=== PATIENT | male | born 1955 | race Caucasian/White ===

== ENCOUNTER 2020-01-14 11:42 | Observation (INO) | payer BC ==
[2020-01-14] MEDS ORDERED: Sodium Chloride 0.9% 2.5 ML Syringe FLUSH PRN (12:13)
[2020-01-14] MEDS ORDERED: Sodium Chloride 0.9% 10 ML Syringe FLUSH PRN (12:13)
--- NOTE | 2020-01-14 12:18 | EDM.PDOC ---
ED HPI GENERAL MEDICAL PROBLEM - General Chief Complaint: Respiratory Problem Stated Complaint: SOB/ASTHMA Time Seen by Provider: 01/14/20 11:57 Source of Information: Reports: Patient History Limitations: Reports: No Limitations - History of Present Illness INITIAL COMMENTS - FREE TEXT/NARRATIVE: 65-year-old male with history of HTN, DM, HLD, smoker, recent left rib fractures , diabetes presents with shortness of breath / leg swelling. His legs have been swollen for 2 days now. He admits to feeling short of breath and attributes it to his for rib fractures from the fall 4 months ago, but his dyspnea has worsened over the last 2 months. He says he hurts to take a deep breath. He does admit to cough for phlegm for about 3 months, but denies fever , chills, chest pain, nausea, vomiting, abdominal pain. ROS: A 10-point review of systems, other than pertinent positives and negatives as stated per HPI, is otherwise negative PHYSICAL EXAM General: AOx4, GCS = 15, No distress HEENT: dry mucous membrane Neck: supple, no meningismus, no Kernig or Brudzinski Cardiac: S1S2 tachycardia, JVD, pedal edema Respiratory: Bibasilar crackles and rales Abdomen: Soft, nontender, no rebound or guarding, nondistended, no pulsatile mass. Back: nontender Musculoskeletal: NVI distally, no deformity Neuro: No focal deficits. MEDICAL DECISION MAKING: I reviewed the patients past medical records, lab and radiographic findings. I discussed the case with family members. My differential diagnosis included: CHF, atelectasis, ACS feet Pain Score (Numeric/FACES): 1 - Related Data Allergies Allergy/AdvReac Type Severity Reaction Status Date / Time oxaprozin [From Daypro] Allergy Abdominal Verified 01/14/20 12:08 Pain Penicillins Allergy Itching Verified 01/14/20 12:08 Home Meds: Home Meds Budesonide [Pulmicort Flexhaler] 3 puff INH BID 01/14/20 [History] Doxepin [SINEquan] 1 cap PO DAILY 01/14/20 [History] Dutasteride 1 cap PO DAILY 01/14/20 [History] Empagliflozin [Jardiance] 1 tab PO DAILY 01/14/20 [History] Omeprazole Magnesium [Prilosec Otc] 1 tab PO DAILY 01/14/20 [History] Rosuvastatin [Crestor] 1 tab PO DAILY 01/14/20 [History] SitaGLIPtin [Januvia] 1 tab PO DAILY 01/14/20 [History] Tamsulosin [Flomax] 1 cap PO DAILY 01/14/20 [History] Triamcinolone Acetonide [Nasacort] 2 spray NASBOTH DAILY 01/14/20 [History] Ubidecarenone [Coq-10] 6 tab PO DAILY 01/14/20 [History] amLODIPine [Norvasc] 10 mg PO DAILY 01/14/20 [History] lisinopriL [Lisinopril] 1 tab PO DAILY 01/14/20 [History] Past Medical History Cardiovascular History: Reports: High Cholesterol, Hypertension Respiratory History: Reports: Asthma Endocrine/Metabolic History: Reports: Diabetes, Type II - Infectious Disease History Infectious Disease History: Reports: Chicken Pox, Mumps - Past Surgical History Musculoskeletal Surgical History: Reports: Shoulder Surgery Social & Family History - Family History Family Medical History: Noncontributory - Tobacco Use Smoking Status *Q: Current Every Day Smoker Years of Tobacco use: 42 Packs/Tins Daily: 1 Tobacco Use Comment: hasn't smoked in 1 week - Caffeine Use Caffeine Use: Reports: Coffee, Soda - Alcohol Use Days Per Week of Alcohol Use: 7 Number of Drinks Per Day: 2 Total Drinks Per Week: 14 - Recreational Drug Use Recreational Drug Use: No ED ROS GENERAL - Review of Systems Review Of Systems: See Below (see dictation) ED EXAM, GENERAL - Physical Exam Exam: See Below (see dictation) Exam Limited By: No Limitations EKG INTERPRETATION EKG Interpretation Comments: 103 Bpm, sinus tachycardia, normal QRS interval, T wave inversion I/AVL, no STEMI. EKG and rhythm strip interpreted by me at 1228 Course - Vital Signs Last Recorded V/S: Last Vital Signs Temp 97.5 F 01/14/20 12:03 Pulse 101 H 01/14/20 13:46 Resp 16 01/14/20 13:46 BP 110/72 01/14/20 13:46 Pulse Ox 92 L 01/14/20 13:46 - Orders/Labs/Meds Orders: Active Orders 24 hr Category Date Time Status Cardiac Monitoring [RC] . DIRECTED Care 01/14/20 12:13 Active EKG Documentation Completion [RC] STAT Care 01/14/20 12:13 Active Pulse Oximetry [RC] ASDIRECTED Care 01/14/20 12:13 Active Sodium Chloride 0.9% [Saline Flush] Med 01/14/20 12:13 Active 10 ml FLUSH ASDIRECTED PRN Sodium Chloride 0.9% [Saline Flush] Med 01/14/20 12:13 Active 2.5 ml FLUSH ASDIRECTED PRN Saline Lock Insert [OM.PC] Stat Oth 01/14/20 12:13 Ordered Medication Orders Sodium Chloride (Saline Flush) 10 ml FLUSH ASDIRECTED PRN PRN Reason: Keep Vein Open Last Admin: 01/14/20 12:36 Dose: 10 ml Sodium Chloride (Saline Flush) 2.5 ml FLUSH ASDIRECTED PRN PRN Reason: Keep Vein Open Last Admin: 01/14/20 12:36 Dose: 2.5 ml Labs: Laboratory Tests 01/14/20 01/14/20 01/14/20 Range/Units 12:30 12:30 12:30 WBC 11.98 H (4.0-11.0) K/uL RBC 5.46 (4.50-5.90) M/uL Hgb 16.4 (13.0-17.0) g/dL Hct 50.3 H (38.0-50.0) % MCV 92.1 (80.0-98.0) fL MCH 30.0 (27.0-32.0) pg MCHC 32.6 (31.0-37.0) g/dL RDW Std Deviation 48.9 (28.0-62.0) fl RDW Coeff of Jenn 15 (11.0-15.0) % Plt Count 171 (150-400) K/uL MPV 11.10 (7.40-12.00) fL Neut % (Auto) 73.3 (48.0-80.0) % Lymph % (Auto) 19.1 (16.0-40.0) % Sharp % (Auto) 6.6 (0.0-15.0) % Eos % (Auto) 0.7 (0.0-7.0) % Baso % (Auto) 0.3 (0.0-1.5) % Neut # (Auto) 8.8 H (1.4-5.7) K/uL Lymph # (Auto) 2.3 (0.6-2.4) K/uL Sharp # (Auto) 0.8 (0.0-0.8) K/uL Eos # (Auto) 0.1 (0.0-0.7) K/uL Baso # (Auto) 0.0 (0.0-0.1) K/uL Nucleated RBC % 0.0 /100WBC Nucleated RBCs # 0 K/uL INR 1.06 Sodium 139 (136-148) mmol/L Potassium 4.4 (3.5-5.1) mmol/L Chloride 104 (98-107) mmol/L Carbon Dioxide 25.9 (21.0-32.0) mmol/L BUN 21 H (7.0-18.0) mg/dL Creatinine 1.2 (0.8-1.3) mg/dL Est Cr Clr Drug Dosing 56.86 mL/min Estimated GFR (MDRD) > 60.0 ml/min Glucose 154 H (74-106) mg/dL Calcium 8.5 (8.5-10.1) mg/dL Total Bilirubin 0.6 (0.2-1.0) mg/dL AST 24 (15-37) IU/L ALT 41 (14-63) IU/L Alkaline Phosphatase 58 (46-116) U/L Troponin I < 0.050 (0.000-0.056) ng/mL B-Natriuretic Peptide (<100) PG/ML Total Protein 7.1 (6.4-8.2) g/dL Albumin 3.5 (3.4-5.0) g/dL Globulin 3.6 (2.6-4.0) g/dL Albumin/Globulin Ratio 1.0 (0.9-1.6) 01/14/20 Range/Units 12:30 WBC (4.0-11.0) K/uL RBC (4.50-5.90) M/uL Hgb (13.0-17.0) g/dL Hct (38.0-50.0) % MCV (80.0-98.0) fL MCH (27.0-32.0) pg MCHC (31.0-37.0) g/dL RDW Std Deviation (28.0-62.0) fl RDW Coeff of Jenn (11.0-15.0) % Plt Count (150-400) K/uL MPV (7.40-12.00) fL Neut % (Auto) (48.0-80.0) % Lymph % (Auto) (16.0-40.0) % Sharp % (Auto) (0.0-15.0) % Eos % (Auto) (0.0-7.0) % Baso % (Auto) (0.0-1.5) % Neut # (Auto) (1.4-5.7) K/uL Lymph # (Auto) (0.6-2.4) K/uL Sharp # (Auto) (0.0-0.8) K/uL Eos # (Auto) (0.0-0.7) K/uL Baso # (Auto) (0.0-0.1) K/uL Nucleated RBC % /100WBC Nucleated RBCs # K/uL INR Sodium (136-148) mmol/L Potassium (3.5-5.1) mmol/L Chloride (98-107) mmol/L Carbon Dioxide (21.0-32.0) mmol/L BUN (7.0-18.0) mg/dL Creatinine (0.8-1.3) mg/dL Est Cr Clr Drug Dosing mL/min Estimated GFR (MDRD) ml/min Glucose (74-106) mg/dL Calcium (8.5-10.1) mg/dL Total Bilirubin (0.2-1.0) mg/dL AST (15-37) IU/L ALT (14-63) IU/L Alkaline Phosphatase (46-116) U/L Troponin I (0.000-0.056) ng/mL B-Natriuretic Peptide 521 H (<100) PG/ML Total Protein (6.4-8.2) g/dL Albumin (3.4-5.0) g/dL Globulin (2.6-4.0) g/dL Albumin/Globulin Ratio (0.9-1.6) Meds: Medications Generic Name Dose Route Start Last Admin Trade Name Freq PRN Reason Stop Dose Admin Sodium Chloride 10 ml 01/14/20 12:13 01/14/20 12:36 Saline Flush FLUSH 10 ml ASDIRECTED PRN Administration Keep Vein Open Sodium Chloride 2.5 ml 01/14/20 12:13 01/14/20 12:36 Saline Flush FLUSH 2.5 ml ASDIRECTED PRN Administration Keep Vein Open - Re-Assessments/Exams Free Text/Narrative Re-Assessment/Exam: 01/14/20 13:40: Ambulated patient on room air, he desat to 90%. 01/14/20 13:58: Case discussed with Dr. Parker, who agrees to assume care at this point. The hospitalist's documentation supersedes all other documentation on this patient with regard to any conflicts or discrepancies from this point forward. Any emergency conditions have been treated to the ability of the ED prior to admission. Departure - Departure Time of Disposition: 13:59 Disposition: Refer to Observation Condition: Good Clinical Impression: Congestive heart failure (CHF) - Discharge Information Referrals: José Browne MD [Primary Care Provider] - Forms: ED Department Discharge Sepsis Event Note (ED) - Evaluation Sepsis Screening Result: No Definite Risk - Focused Exam Vital Signs: Vital Signs Temp Pulse Resp BP Pulse Ox 01/14/20 13:46 101 H 16 110/72 92 L 01/14/20 12:37 101 H 20 100/63 91 L 01/14/20 12:03 97.5 F 106 H 20 119/82 92 L - My Orders Last 24 Hours: My Active Orders 01/14/20 12:13 Cardiac Monitoring [RC] . DIRECTED EKG Documentation Completion [RC] STAT Pulse Oximetry [RC] ASDIRECTED Sodium Chloride 0.9% [Saline Flush] 10 ml FLUSH ASDIRECTED PRN Sodium Chloride 0.9% [Saline Flush] 2.5 ml FLUSH ASDIRECTED PRN Saline Lock Insert [OM.PC] Stat - Assessment/Plan Last 24 Hours: My Active Orders 01/14/20 12:13 Cardiac Monitoring [RC] . DIRECTED EKG Documentation Completion [RC] STAT Pulse Oximetry [RC] ASDIRECTED Sodium Chloride 0.9% [Saline Flush] 10 ml FLUSH ASDIRECTED PRN Sodium Chloride 0.9% [Saline Flush] 2.5 ml FLUSH ASDIRECTED PRN Saline Lock Insert [OM.PC] Stat
[2020-01-14 13:07] LABS: BLOOD UREA NITROGEN,BUN 21 mg/dL (7.0-18.0); CARBON DIOXIDE,CO2 25.9 mmol/L (21.0-32.0); CHLORIDE,CL 104 mmol/L (98-107); GLUCOSE RANDOM 154 mg/dL (74-106); POTASSIUM,K 4.4 mmol/L (3.5-5.1); SODIUM,NA 139 mmol/L (136-148)
--- NOTE | 2020-01-14 13:10 | CR ---
Chest: 2 views of the chest were obtained. Comparison: No prior chest x-rays available. Heart is mildly enlarged. Upper mediastinum is normal. 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 Lungs otherwise are clear. Slight degenerative change scattered within the spine. Impression: 1. 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 2. Mild cardiomegaly and other findings. Nothing acute is otherwise seen. Diagnostic code #3 This report was dictated in MDT
[2020-01-14] MEDS ORDERED: Furosemide 40 MG/4 ML VIAL IVPUSH ONE (13:57)
[2020-01-14] MEDS ORDERED: Acetaminophen 325 MG Tab PO PRN (14:31)
[2020-01-14] MEDS ORDERED: Docusate Sodium 100 MG Cap PO PRN (14:31)
[2020-01-14] MEDS ORDERED: Ondansetron 4 MG/2 ML SDV IVPUSH PRN (14:31)
--- NOTE | 2020-01-14 15:00 | PCM.HP.2 ---
<Tara Obrien M - Last Filed: 01/14/20 14:53> H&P History of Present Illness - General Date of Service: 01/14/20 Admit Problem/Dx: Admission Diagnosis/Problem Admission Diagnosis/Problem CHF, Congestive heart failure Source of Information: Patient History Limitations: Reports: No Limitations - History of Present Illness Initial Comments - Free Text/Narative: This 65 year old male with pmh of HTN, DM type 2, asthma, tobacco use,sometimes daily alcohol use, and BPH presented to the ED with complaints of shortness of breath and leg swelling. He reports his noted leg swelling a couple days ago and it has progressively worsened over the last day. He reports his legs feel tight and tingling at times. No numbness. He denies chest pain. No palpitations. He reports shortness of breath with activity. Reports shallowing breathing more due to recent rib fractures. Reports waking up with coughing and shortness of breath at night, mainly when he lays on his back. Denies PEE history. Reports he takes Pulmicort and rescue inhaler for asthma, but feels its not a big issue. No abdominal pain or constipation. No black or bloody stools. No urinary troubles. No leg pain or erythema noted to legs. He denies family history of significant CAD, knows mother had heart troubles but not what kind. Denies personal hx of CVA, CAD or NV. He reports he smokes 1 ppd, but has not smoked for over a week due to the shortness of breath. reports he drinks a couple drinks every night to every other night. Denies withdrawal symptoms. He states he can go many days without alcohol and is fine. No recreational drug us. In the ED no leukocytosis noted. Hgb elevated 16.4 and Hct 50.3. INR 1.06, BUN 21, Cr 1.2. Troponin negative. BNP levated at 521. EKG SR with no ST segment changes. CXR revealed mild cardiomegaly, and subacute L 5-7 rib fractures with some noted pleural thickening around these fractures. He was given Lasix in the ED. He will be admitted for possible new CHF. feet Pain Score (Numeric/FACES): 1 - Related Data Allergies/Adverse Reactions: Allergies Allergy/AdvReac Type Severity Reaction Status Date / Time oxaprozin [From Daypro] Allergy Abdominal Verified 01/14/20 16:22 Pain Penicillins Allergy Itching Verified 01/14/20 16:22 Home Medications: Home Meds Budesonide [Pulmicort Flexhaler] 3 puff INH BID 01/14/20 [History] Doxepin [SINEquan] 25 mg PO BEDTIME 01/14/20 [History] Dutasteride 0.5 mg PO BEDTIME 01/14/20 [History] Empagliflozin [Jardiance] 1 tab PO ACBREAKFAST 01/14/20 [History] Omeprazole Magnesium [Prilosec Otc] 20 mg PO ACBREAKFAST PRN 01/14/20 [History] Rosuvastatin [Crestor] 5 mg PO BEDTIME 01/14/20 [History] SitaGLIPtin [Januvia] 100 mg PO DAILY 01/14/20 [History] Tamsulosin [Flomax] 0.4 mg PO BEDTIME 01/14/20 [History] Triamcinolone Acetonide [Nasacort] 2 spray NASBOTH DAILY 01/14/20 [History] Ubidecarenone [Coq-10] 2,000 mg PO BID 01/14/20 [History] amLODIPine [Norvasc] 10 mg PO DAILY 01/14/20 [History] lisinopriL [Lisinopril] 10 mg PO DAILY 01/14/20 [History] Past Medical History Cardiovascular History: Reports: High Cholesterol, Hypertension. Denies: Afib, Blood Clots/VTE/DVT, CAD, NV, Stents Respiratory History: Reports: Asthma. Denies: COPD, PE Gastrointestinal History: Reports: None Genitourinary History: Reports: BPH Musculoskeletal History: Reports: Osteoarthritis Neurological History: Reports: None. Denies: CVA, TIA Psychiatric History: Reports: None Endocrine/Metabolic History: Reports: Diabetes, Type II, Obesity/BMI 30+ - Infectious Disease History Infectious Disease History: Reports: Chicken Pox, Mumps - Past Surgical History Musculoskeletal Surgical History: Reports: Shoulder Surgery Social & Family History - Family History Family Medical History: Noncontributory - Tobacco Use Smoking Status *Q: Current Every Day Smoker Years of Tobacco use: 42 Packs/Tins Daily: 1 Tobacco Use Comment: hasn't smoked in 1 week - Caffeine Use Caffeine Use: Reports: Coffee, Soda - Alcohol Use Days Per Week of Alcohol Use: 7 Number of Drinks Per Day: 2 Total Drinks Per Week: 14 Alcohol Use Frequency: Daily - Recreational Drug Use Recreational Drug Use: No - Living Situation & Occupation Living situation: Reports: Occupation: Employed H&P Review of Systems - Review of Systems: Review Of Systems: See Below General: Reports: No Symptoms. Denies: Fever, Chills, Malaise Pulmonary: Reports: Shortness of Breath, Cough. Denies: Wheezing, Sputum Cardiovascular: Reports: Dyspnea on Exertion, Orthopnea, Edema. Denies: Chest Pain, Palpitations, Syncope Gastrointestinal: Reports: No Symptoms. Denies: Abdominal Pain, Black Stool, Bloody Stool, Distension, Nausea, Vomiting Genitourinary: Reports: No Symptoms. Denies: Dysuria, Frequency, Burning Musculoskeletal: Reports: No Symptoms Skin: Reports: No Symptoms Psychiatric: Reports: No Symptoms Neurological: Reports: No Symptoms Hematologic/Lymphatic: Reports: No Symptoms Immunologic: Reports: No Symptoms Exam - Exam Exam: See Below - Vital Signs Vital Signs: Last Vital Signs Temp 97.5 F 01/14/20 12:03 Pulse 101 H 01/14/20 14:44 Resp 16 01/14/20 14:44 BP 106/69 01/14/20 14:44 Pulse Ox 92 L 01/14/20 14:44 Weight: 102.058 kg - Exam Quality Assessment: DVT Prophylaxis. No: Supplemental Oxygen General: Alert, Oriented, Cooperative HEENT: Conjunctiva Clear, Mucosa Moist & [place], Posterior Pharynx Clear Lungs: Decreased Breath Sounds (bibasilar), Crackles (fine, bibasilar) Cardiovascular: Regular Rate, Regular Rhythm, Normal S1, Normal S2. No: Systolic Murmur GI/Abdominal Exam: Normal Bowel Sounds, Soft, Non-Tender Back Exam: Normal Inspection, Full Range of Motion Extremities: Normal Inspection, Normal Range of Motion, Non-Tender, Pedal Edema (+2 pitting edema BLE and feet). No: Luann's Sign, Leg Pain Peripheral Pulses: 2+: Posterior Tibial (L), Posterior Tibial (R), Dorsalis Pedis (L), Dorsalis Pedis (R) Skin: Warm, Dry, Intact Neurological: Cranial Nerves Intact Neuro Extensive - Mental Status: Alert, Oriented x3 Neuro Extensive - Motor, Sensory, Reflexes: CN II-XII Intact Psychiatric: Alert, Normal Affect, Normal Mood - Patient Data Lab Results Last 24 hrs: Laboratory Results - last 24 hr 01/14/20 01/14/20 01/14/20 Range/Units 12:30 12:30 12:30 WBC 11.98 H (4.0-11.0) K/uL RBC 5.46 (4.50-5.90) M/uL Hgb 16.4 (13.0-17.0) g/dL Hct 50.3 H (38.0-50.0) % MCV 92.1 (80.0-98.0) fL MCH 30.0 (27.0-32.0) pg MCHC 32.6 (31.0-37.0) g/dL RDW Std Deviation 48.9 (28.0-62.0) fl RDW Coeff of Jenn 15 (11.0-15.0) % Plt Count 171 (150-400) K/uL MPV 11.10 (7.40-12.00) fL Neut % (Auto) 73.3 (48.0-80.0) % Lymph % (Auto) 19.1 (16.0-40.0) % [place] % (Auto) 6.6 (0.0-15.0) % Eos % (Auto) 0.7 (0.0-7.0) % Baso % (Auto) 0.3 (0.0-1.5) % Neut # (Auto) 8.8 H (1.4-5.7) K/uL Lymph # (Auto) 2.3 (0.6-2.4) K/uL [place] # (Auto) 0.8 (0.0-0.8) K/uL Eos # (Auto) 0.1 (0.0-0.7) K/uL Baso # (Auto) 0.0 (0.0-0.1) K/uL Nucleated RBC % 0.0 /100WBC Nucleated RBCs # 0 K/uL INR 1.06 Sodium 139 (136-148) mmol/L Potassium 4.4 (3.5-5.1) mmol/L Chloride 104 (98-107) mmol/L Carbon Dioxide 25.9 (21.0-32.0) mmol/L BUN 21 H (7.0-18.0) mg/dL Creatinine 1.2 (0.8-1.3) mg/dL Est Cr Clr Drug Dosing 56.86 mL/min Estimated GFR (MDRD) > 60.0 ml/min Glucose 154 H (74-106) mg/dL Calcium 8.5 (8.5-10.1) mg/dL Total Bilirubin 0.6 (0.2-1.0) mg/dL AST 24 (15-37) IU/L ALT 41 (14-63) IU/L Alkaline Phosphatase 58 (46-116) U/L Troponin I < 0.050 (0.000-0.056) ng/mL B-Natriuretic Peptide (<100) PG/ML Total Protein 7.1 (6.4-8.2) g/dL Albumin 3.5 (3.4-5.0) g/dL Globulin 3.6 (2.6-4.0) g/dL Albumin/Globulin Ratio 1.0 (0.9-1.6) 01/14/20 Range/Units 12:30 WBC (4.0-11.0) K/uL RBC (4.50-5.90) M/uL Hgb (13.0-17.0) g/dL Hct (38.0-50.0) % MCV (80.0-98.0) fL MCH (27.0-32.0) pg MCHC (31.0-37.0) g/dL RDW Std Deviation (28.0-62.0) fl RDW Coeff of Jenn (11.0-15.0) % Plt Count (150-400) K/uL MPV (7.40-12.00) fL Neut % (Auto) (48.0-80.0) % Lymph % (Auto) (16.0-40.0) % [place] % (Auto) (0.0-15.0) % Eos % (Auto) (0.0-7.0) % Baso % (Auto) (0.0-1.5) % Neut # (Auto) (1.4-5.7) K/uL Lymph # (Auto) (0.6-2.4) K/uL [place] # (Auto) (0.0-0.8) K/uL Eos # (Auto) (0.0-0.7) K/uL Baso # (Auto) (0.0-0.1) K/uL Nucleated RBC % /100WBC Nucleated RBCs # K/uL INR Sodium (136-148) mmol/L Potassium (3.5-5.1) mmol/L Chloride (98-107) mmol/L Carbon Dioxide (21.0-32.0) mmol/L BUN (7.0-18.0) mg/dL Creatinine (0.8-1.3) mg/dL Est Cr Clr Drug Dosing mL/min Estimated GFR (MDRD) ml/min Glucose (74-106) mg/dL Calcium (8.5-10.1) mg/dL Total Bilirubin (0.2-1.0) mg/dL AST (15-37) IU/L ALT (14-63) IU/L Alkaline Phosphatase (46-116) U/L Troponin I (0.000-0.056) ng/mL B-Natriuretic Peptide 521 H (<100) PG/ML Total Protein (6.4-8.2) g/dL Albumin (3.4-5.0) g/dL Globulin (2.6-4.0) g/dL Albumin/Globulin Ratio (0.9-1.6) Result Diagrams: 01/14/20 12:30 01/14/20 12:30 Sepsis Event Note - Evaluation Sepsis Screening Result: No Definite Risk - Focused Exam Vital Signs: Vital Signs Temp Pulse Resp BP Pulse Ox 01/14/20 14:44 101 H 16 106/69 92 L 01/14/20 13:46 101 H 16 110/72 92 L 01/14/20 12:37 101 H 20 100/63 91 L 01/14/20 12:03 97.5 F 106 H 20 119/82 92 L Date Exam was Performed: 01/14/20 Time Exam was Performed: 14:53 - Problem List (1) Congestive heart failure (CHF) SNOMED Code(s): 72828319 ICD Code: I50.9 - HEART FAILURE, UNSPECIFIED Status: Suspected Current Visit: Yes Qualifiers: Heart failure type: unspecified Heart failure chronicity: acute Qualified Code(s): I50.9 - Heart failure, unspecified (2) Dyspnea SNOMED Code(s): 002721844 ICD Code: R06.00 - DYSPNEA, UNSPECIFIED Status: Acute Current Visit: Yes (3) Peripheral edema SNOMED Code(s): 007737080 ICD Code: R60.9 - EDEMA, UNSPECIFIED Status: Acute Current Visit: Yes (4) DM type 2 (diabetes mellitus, type 2) SNOMED Code(s): 94284993 ICD Code: E11.9 - TYPE 2 DIABETES MELLITUS WITHOUT COMPLICATIONS Status: Chronic Current Visit: Yes Qualifiers: Diabetes mellitus residential insulin use: without emt intermediate use Diabetes mellitus complication status: without complication Qualified Code(s): E11.9 - Type 2 diabetes mellitus without complications (5) BPH (benign prostatic hyperplasia) SNOMED Code(s): 901576680 ICD Code: N40.0 - BENIGN PROSTATIC HYPERPLASIA WITHOUT LOWER URINRY TRACT SYMP Status: Chronic Current Visit: Yes (6) HTN (hypertension) SNOMED Code(s): 71458579 ICD Code: I10 - ESSENTIAL (PRIMARY) HYPERTENSION Status: Chronic Current Visit: Yes (7) Tobacco use SNOMED Code(s): 619085108 ICD Code: Z72.0 - TOBACCO USE Status: Chronic Current Visit: Yes (8) Alcohol use SNOMED Code(s): 726941 ICD Code: Z72.89 - OTHER PROBLEMS RELATED TO LIFESTYLE Status: Chronic Current Visit: Yes Problem List Initiated/Reviewed/Updated: Yes Orders Last 24hrs: Active Orders 24 hr Category Date Time Status Admission Status [Patient Status] [ADT] Stat ADT 01/14/20 14:01 Active Ambulate [RC] ASDIRECTED Care 01/14/20 14:31 Active Blood Glucose Check, Bedside [RC] TIDAC Care 01/14/20 14:34 Active Height and Weight [RC] DAILY Care 01/14/20 14:31 Active Oxygen Therapy [RC] PRN Care 01/14/20 14:31 Active Pulse Oximetry [RC] ASDIRECTED Care 01/14/20 12:13 Active RT Aerosol Therapy [RC] ASDIRECTED Care 01/14/20 14:33 Active Telemetry Monitoring [Cardiac Monitoring] [RC] . Care 01/14/20 14:05 Active DIRECTED Up With Assistance [RC] ASDIRECTED Care 01/14/20 14:31 Active VTE/DVT Education [RC] PER UNIT ROUTINE Care 01/14/20 14:31 Active Vital Signs [RC] Q4H Care 01/14/20 14:31 Active Heart Healthy Diet [DIET] Diet 01/14/20 Lunch Active Ang Chest [CT] Urgent Exams 01/14/20 14:52 Ordered Echo Comp wo Cont [US] Urgent Exams 01/14/20 14:02 Ordered BASIC METABOLIC PANEL,BMP [CHEM] AM Lab 01/15/20 05:11 Ordered CBC WITH AUTO DIFF [HEME] AM Lab 01/15/20 05:11 Ordered GLYCOSYLATED HEMOGLOBIN,HGBA1C [CHEM] Routine Lab 01/14/20 14:50 Ordered LIPID PANEL [CHEM] AM Lab 01/15/20 05:11 Ordered MAGNESIUM [CHEM] AM Lab 01/15/20 05:11 Ordered TSH [CHEM] Routine Lab 01/14/20 14:51 Ordered Acetaminophen [Tylenol] Med 01/14/20 14:31 Active 650 mg PO Q4H PRN Albuterol/Ipratropium [DuoNeb 3.0-0.5 MG/3 ML] Med 01/14/20 18:00 Active 3 ml NEB Q6HRRT Budesonide [Pulmicort Flexhaler] Med 01/14/20 21:00 Ordered 3 puff INH BID Docusate Sodium [Colace] Med 01/14/20 14:31 Active 100 mg PO BID PRN Doxepin [SINEquan] Med 01/15/20 09:00 Ordered DOSE mg PO DAILY Dutasteride [Avodart] Med 01/15/20 09:00 Ordered DOSE mg PO DAILY Furosemide [Lasix] Med 01/15/20 08:00 Ordered 40 mg IVPUSH BIDDIURETIC Furosemide [Lasix] Med 01/14/20 20:00 Once 40 mg IVPUSH DAILY ONE Insulin Aspart [NovoLOG] Med 01/14/20 17:00 Active See Protocol SUBCUT TIDAC Omeprazole Magnesium [Prilosec Otc] Med 01/15/20 09:00 Ordered 1 tab PO DAILY Ondansetron [Zofran] Med 01/14/20 14:31 Active 4 mg IVPUSH Q4H PRN Rosuvastatin Med 01/15/20 09:00 Ordered 1 tab PO DAILY Tamsulosin [Flomax] Med 01/15/20 09:00 Ordered DOSE mg PO DAILY Saline Lock Insert [OM.PC] Stat Oth 01/14/20 12:13 Ordered Resuscitation Status Routine Resus Stat 01/14/20 14:31 Ordered Medication Orders Acetaminophen (Tylenol) 650 mg PO Q4H PRN PRN Reason: Pain (Mild 1-3)/fever Albuterol/Ipratropium (Duoneb 3.0-0.5 Mg/3 Ml) 3 ml NEB Q6HRRT [facility] Docusate Sodium (Colace) 100 mg PO BID PRN PRN Reason: Constipation Doxepin HCl (Sinequan) mg PO DAILY CHRISTOPH Dutasteride (Avodart) mg PO DAILY CHRISTOPH Furosemide (Lasix) 40 mg IVPUSH BIDDIURETIC CHRISTOPH Furosemide (Lasix) 40 mg IVPUSH DAILY ONE Stop: 01/14/20 20:01 Insulin Aspart (Novolog) 0 unit SUBCUT TIDAC CHRISTOPH; Protocol Non-Formulary Medication (Budesonide [Pulmicort Flexhaler]) 3 puff INH BID CHRISTOPH Non-Formulary Medication (Omeprazole Magnesium [Prilosec Otc]) 1 tab PO DAILY CHRISTOPH Non-Formulary Medication (Rosuvastatin) 1 tab PO DAILY CHRISTOPH Ondansetron HCl (Zofran) 4 mg IVPUSH Q4H PRN PRN Reason: Nausea Tamsulosin HCl (Flomax) mg PO DAILY [facility] Assessment/Plan Comment:: This 65 year old male admitted with suspected CHF exacerbation with new dyspnea and peripheral edema 1. Suspected acute CHF - Obtain CTA chest to rule out PE and R heart strain - ECHO - Continue Lasix 40 mg IV BID - Monitor on telemetry for arrhythmia - Monitor daily weight and strict I/O - heart healthy 2 gm Na diet with 1.8 L FR. - Monitor TSH, A1c and lipid panel 2. DM type 2 - Hold Po medications - Novolog SSI with meals - Monitor A1c 3. HTN - BP stable currently, will hold ABIMAEL and Amlodipine today. Reassess in am after diuresis 4. Alcohol use: - Thiamine and folic acid - CIWAA protocol with Ativan PO PRN. 5. BPH: - Continue Avodart and Flomax VTE prophylaxis: Heparin Dispo: 1-2 days pending improvement <Cy Parker - Last Filed: 01/14/20 17:56> H&P History of Present Illness - General Admit Problem/Dx: Admission Diagnosis/Problem Admission Diagnosis/Problem CHF, Congestive heart failure Exam - Vital Signs Vital Signs: Last Vital Signs Temp 36.8 C 01/14/20 15:16 Pulse 106 H 01/14/20 15:16 Resp 16 01/14/20 15:16 BP 119/88 01/14/20 15:16 Pulse Ox 91 L 01/14/20 15:16 - Patient Data Lab Results Last 24 hrs: Laboratory Results - last 24 hr 01/14/20 01/14/20 01/14/20 Range/Units 12:30 12:30 12:30 WBC 11.98 H (4.0-11.0) K/uL RBC 5.46 (4.50-5.90) M/uL Hgb 16.4 (13.0-17.0) g/dL Hct 50.3 H (38.0-50.0) % MCV 92.1 (80.0-98.0) fL MCH 30.0 (27.0-32.0) pg MCHC 32.6 (31.0-37.0) g/dL RDW Std Deviation 48.9 (28.0-62.0) fl RDW Coeff of Jenn 15 (11.0-15.0) % Plt Count 171 (150-400) K/uL MPV 11.10 (7.40-12.00) fL Neut % (Auto) 73.3 (48.0-80.0) % Lymph % (Auto) 19.1 (16.0-40.0) % [place] % (Auto) 6.6 (0.0-15.0) % Eos % (Auto) 0.7 (0.0-7.0) % Baso % (Auto) 0.3 (0.0-1.5) % Neut # (Auto) 8.8 H (1.4-5.7) K/uL Lymph # (Auto) 2.3 (0.6-2.4) K/uL [place] # (Auto) 0.8 (0.0-0.8) K/uL Eos # (Auto) 0.1 (0.0-0.7) K/uL Baso # (Auto) 0.0 (0.0-0.1) K/uL Nucleated RBC % 0.0 /100WBC Nucleated RBCs # 0 K/uL INR 1.06 Sodium 139 (136-148) mmol/L Potassium 4.4 (3.5-5.1) mmol/L Chloride 104 (98-107) mmol/L Carbon Dioxide 25.9 (21.0-32.0) mmol/L BUN 21 H (7.0-18.0) mg/dL Creatinine 1.2 (0.8-1.3) mg/dL Est Cr Clr Drug Dosing 56.86 mL/min Estimated GFR (MDRD) > 60.0 ml/min Glucose 154 H (74-106) mg/dL POC Glucose (60-110) mg/dL Calcium 8.5 (8.5-10.1) mg/dL Total Bilirubin 0.6 (0.2-1.0) mg/dL AST 24 (15-37) IU/L ALT 41 (14-63) IU/L Alkaline Phosphatase 58 (46-116) U/L Troponin I < 0.050 (0.000-0.056) ng/mL B-Natriuretic Peptide (<100) PG/ML Total Protein 7.1 (6.4-8.2) g/dL Albumin 3.5 (3.4-5.0) g/dL Globulin 3.6 (2.6-4.0) g/dL Albumin/Globulin Ratio 1.0 (0.9-1.6) TSH 3rd Generation (0.36-3.74) uIU/mL 01/14/20 01/14/20 01/14/20 Range/Units 12:30 12:30 16:16 WBC (4.0-11.0) K/uL RBC (4.50-5.90) M/uL Hgb (13.0-17.0) g/dL Hct (38.0-50.0) % MCV (80.0-98.0) fL MCH (27.0-32.0) pg MCHC (31.0-37.0) g/dL RDW Std Deviation (28.0-62.0) fl RDW Coeff of Jenn (11.0-15.0) % Plt Count (150-400) K/uL MPV (7.40-12.00) fL Neut % (Auto) (48.0-80.0) % Lymph % (Auto) (16.0-40.0) % [place] % (Auto) (0.0-15.0) % Eos % (Auto) (0.0-7.0) % Baso % (Auto) (0.0-1.5) % Neut # (Auto) (1.4-5.7) K/uL Lymph # (Auto) (0.6-2.4) K/uL [place] # (Auto) (0.0-0.8) K/uL Eos # (Auto) (0.0-0.7) K/uL Baso # (Auto) (0.0-0.1) K/uL Nucleated RBC % /100WBC Nucleated RBCs # K/uL INR Sodium (136-148) mmol/L Potassium (3.5-5.1) mmol/L Chloride (98-107) mmol/L Carbon Dioxide (21.0-32.0) mmol/L BUN (7.0-18.0) mg/dL Creatinine (0.8-1.3) mg/dL Est Cr Clr Drug Dosing mL/min Estimated GFR (MDRD) ml/min Glucose (74-106) mg/dL POC Glucose 126 H (60-110) mg/dL Calcium (8.5-10.1) mg/dL Total Bilirubin (0.2-1.0) mg/dL AST (15-37) IU/L ALT (14-63) IU/L Alkaline Phosphatase (46-116) U/L Troponin I (0.000-0.056) ng/mL B-Natriuretic Peptide 521 H (<100) PG/ML Total Protein (6.4-8.2) g/dL Albumin (3.4-5.0) g/dL Globulin (2.6-4.0) g/dL Albumin/Globulin Ratio (0.9-1.6) TSH 3rd Generation 1.61 (0.36-3.74) uIU/mL Result Diagrams: 01/14/20 12:30 01/14/20 12:30 Sepsis Event Note - Focused Exam Vital Signs: Vital Signs Temp Pulse Resp BP Pulse Ox 01/14/20 15:16 36.8 C 106 H 16 119/88 91 L 01/14/20 14:44 101 H 16 106/69 92 L 01/14/20 13:46 101 H 16 110/72 92 L 01/14/20 12:37 101 H 20 100/63 91 L 01/14/20 12:03 36.4 C 106 H 20 119/82 92 L Date Exam was Performed: 01/14/20 Time Exam was Performed: 17:52 Orders Last 24hrs: Active Orders 24 hr Category Date Time Status Admission Status [Patient Status] [ADT] Stat ADT 01/14/20 14:01 Active Ambulate [RC] ASDIRECTED Care 01/14/20 14:31 Active Blood Glucose Check, Bedside [RC] TIDAC Care 01/14/20 14:34 Active CIWAA Assessment [RC] Q4H Care 01/14/20 15:16 Active Height and Weight [RC] DAILY Care 01/14/20 14:31 Active Intake and Output Strict [RC] ASDIRECTED Care 01/14/20 15:26 Active Oxygen Therapy [RC] PRN Care 01/14/20 14:31 Active RT Aerosol Therapy [RC] ASDIRECTED Care 01/14/20 14:33 Active Telemetry Monitoring [Cardiac Monitoring] [RC] Q8H Care 01/14/20 14:05 Active Up With Assistance [RC] ASDIRECTED Care 01/14/20 14:31 Active VTE/DVT Education [RC] PER UNIT ROUTINE Care 01/14/20 14:31 Active Vital Signs [RC] Q4H Care 01/14/20 14:31 Active Heart Healthy Diet [DIET] Diet 01/14/20 Lunch Active Echo Comp wo Cont [US] Urgent Exams 01/14/20 14:02 Ordered BASIC METABOLIC PANEL,BMP [CHEM] AM Lab 01/15/20 05:11 Ordered CBC WITH AUTO DIFF [HEME] AM Lab 01/15/20 05:11 Ordered GLYCOSYLATED HEMOGLOBIN,HGBA1C [CHEM] AM Lab 01/15/20 05:11 Ordered LIPID PANEL [CHEM] AM Lab 01/15/20 05:11 Ordered MAGNESIUM [CHEM] AM Lab 01/15/20 05:11 Ordered TROPONIN I [CHEM] Routine Lab 01/14/20 17:31 Received Acetaminophen [Tylenol] Med 01/14/20 14:31 Active 650 mg PO Q4H PRN Albuterol/Ipratropium [DuoNeb 3.0-0.5 MG/3 ML] Med 01/14/20 18:00 Active 3 ml NEB Q6HRRT Aspirin Med 01/15/20 09:00 Active 325 mg PO DAILY Docusate Sodium [Colace] Med 01/14/20 14:31 Active 100 mg PO BID PRN Doxepin [SINEquan] Med 01/14/20 21:00 Active 25 mg PO BEDTIME Dutasteride [Avodart] Med 01/14/20 21:00 Active 0.5 mg PO BEDTIME Folic Acid Med 01/14/20 21:00 Active 1 mg PO BEDTIME Furosemide [Lasix] Med 01/15/20 08:00 Active 40 mg IVPUSH BIDDIURETIC Furosemide [Lasix] Med 01/14/20 20:00 Once 40 mg IVPUSH DAILY ONE Heparin Sodium Med 01/14/20 17:00 Active 5,000 units SUBCUT Q8H Insulin Aspart [NovoLOG] Med 01/14/20 17:00 Active See Protocol SUBCUT TIDAC LORazepam [Ativan] Med 01/14/20 15:16 Active See Protocol IVPUSH Q4H PRN LORazepam [Ativan] Med 01/14/20 15:16 Active See Protocol PO Q4H PRN Omeprazole Med 01/15/20 07:30 Active 20 mg PO ACBREAKFAST PRN Ondansetron [Zofran] Med 01/14/20 14:31 Active 4 mg IVPUSH Q4H PRN Patient's Own Medication [Ptom] Med 01/14/20 21:00 Active 3 each INH BID Tamsulosin [Flomax] Med 01/14/20 21:00 Active 0.4 mg PO BEDTIME Thiamine [Vitamin B-1] Med 01/14/20 21:00 Active 100 mg PO BEDTIME atorvaSTATin [Lipitor] Med 01/14/20 21:00 Active 80 mg PO BEDTIME Saline Lock Insert [OM.PC] Stat Oth 01/14/20 12:13 Ordered Resuscitation Status Routine Resus Stat 01/14/20 14:31 Ordered Medication Orders Acetaminophen (Tylenol) 650 mg PO Q4H PRN PRN Reason: Pain (Mild 1-3)/fever Albuterol/Ipratropium (Duoneb 3.0-0.5 Mg/3 Ml) 3 ml NEB Q6HRRT CHRISTOPH Last Admin: 01/14/20 17:16 Dose: 3 ml Aspirin (Aspirin) 325 mg PO DAILY CHRISTOPH Atorvastatin Calcium (Lipitor) 80 mg PO BEDTIME CHRISTOPH Docusate Sodium (Colace) 100 mg PO BID PRN PRN Reason: Constipation Doxepin HCl (Sinequan) 25 mg PO BEDTIME CHRISTOPH Dutasteride (Avodart) 0.5 mg PO BEDTIME CHRISTOPH Folic Acid (Folic Acid) 1 mg PO BEDTIME CHRISTOPH Furosemide (Lasix) 40 mg IVPUSH BIDDIURETIC CHRISTOPH Furosemide (Lasix) 40 mg IVPUSH DAILY ONE Stop: 01/14/20 20:01 Heparin Sodium (Porcine) (Heparin Sodium) 5,000 units SUBCUT Q8H CHRISTOPH Insulin Aspart (Novolog) 0 unit SUBCUT TIDAC CHRISTOPH; Protocol Last Admin: 01/14/20 16:21 Dose: Not Given Lorazepam (Ativan) 0 mg PO Q4H PRN; Protocol PRN Reason: CIWAA score Lorazepam (Ativan) 0 mg IVPUSH Q4H PRN; Protocol PRN Reason: CIWAA score Omeprazole (Omeprazole) 20 mg PO ACBREAKFAST PRN PRN Reason: HEARTBURN Ondansetron HCl (Zofran) 4 mg IVPUSH Q4H PRN PRN Reason: Nausea Budesonide [ Pulmicort Flexhaler] 180 Mcg/Actuation 3 each INH BID CHRISTOPH Tamsulosin HCl (Flomax) 0.4 mg PO BEDTIME CHRISTOPH Thiamine HCl (Vitamin B-1) 100 mg PO BEDTIME CHRISTOPH Assessment/Plan Comment:: Spoke with cardiology about Angiogram report showing possible severe area of stenosis within LAD, patient needs outpatient work up for CAD, for now will continue to Diurese, rule out ACS, Obtain 2D ECHO.
[2020-01-14] MEDS ORDERED: LORazepam 2 MG/ML SDV IVPUSH PRN (15:16)
[2020-01-14] MEDS ORDERED: LORazepam 1 MG Tab PO PRN (15:16)
[2020-01-14] MEDS ORDERED: Iopamidol 755 MG/ML 500 ML Multipack Bottle IVPUSH STA (15:58)
--- NOTE | 2020-01-14 16:19 | CT ---
CT chest Technique: Multiple axial sections through the chest were obtained. Intravenous contrast was utilized. Study has been performed as pulmonary angiogram protocol. Findings: Pulmonary arteries are well opacified. No filling defects are seen to indicate pulmonary embolism. Coronary artery atherosclerotic change is seen. Possible severe area of stenosis within the LAD is noted. Mediastinum and hilar region show no adenopathy or mass. No pericardial thickening is seen. Visualized upper abdominal structures show no discrete abnormality. Mild atelectasis is seen posteriorly within both lung bases. No acute parenchymal change is seen. Bone window settings were reviewed. Slight degenerative endplate spurring is noted within the spine. No acute osseous finding is seen. Incompletely healed fractures are noted within the posterior 4th, 5th, 6th, and 7th ribs. There is some adjacent pleural thickening seen next to these rib fractures. Severe degenerative change is noted within the left shoulder. Impression: 1. Atherosclerotic change within the coronary artery. Possible severe area of stenosis within the LAD. Consider CT coronary angiogram to further evaluate. 2. No findings of pulmonary embolism. 3. Subacute fractures within the posterior left 4th through 7th ribs which show no bridging callus. Adjacent mild pleural thickening is seen. 4. Nothing acute is otherwise seen. Diagnostic code #3 This report was dictated in MDT
[2020-01-14] MEDS: Insulin Aspart 100 Units/ML 3 ML Pen SUBCUT SCH (16:21)
[2020-01-14] MEDS: Albuterol/Ipratropium 3.0-0.5 MG/3 ML Neb Soln NEB SCH ×2 (17:16→23:47)
[2020-01-14] MEDS: Heparin Sodium 5,000 Units/ML Vial SUBCUT SCH (17:50)
[2020-01-14] MEDS: atorvaSTATin 40 MG Tab PO SCH (20:46)
[2020-01-14] MEDS: Dutasteride 0.5 MG Cap PO SCH (20:47)
[2020-01-14] MEDS: Tamsulosin 0.4 MG Cap.ER PO SCH (20:50)
[2020-01-14] MEDS: Folic Acid 1 MG Tab PO SCH (20:51)
[2020-01-14] MEDS: Thiamine 100 MG Tab PO SCH (20:51)
[2020-01-14] MEDS: Furosemide 40 MG/4 ML VIAL IVPUSH ONE ×2 (20:51→20:55)
[2020-01-14] MEDS ORDERED: Doxepin 25 MG Cap PO SCH (21:00)
[2020-01-14] MEDS: BUDESONIDE INH SCH (21:05)
[2020-01-15] MEDS: Heparin Sodium 5,000 Units/ML Vial SUBCUT SCH ×3 (00:18→16:32)
[2020-01-15 05:47] LABS: HEMOGLOBIN A1C 7.1 % (4.5-6.2)
[2020-01-15 05:58] LABS: CARBON DIOXIDE,CO2 30.3 mmol/L (21.0-32.0); POTASSIUM,K 4.1 mmol/L (3.5-5.1)
[2020-01-15] MEDS: Albuterol/Ipratropium 3.0-0.5 MG/3 ML Neb Soln NEB SCH ×3 (06:09→18:05)
[2020-01-15] MEDS ORDERED: Omeprazole 20 MG Cap.CR PO PRN (07:30)
[2020-01-15] MEDS: Insulin Aspart 100 Units/ML 3 ML Pen SUBCUT SCH ×3 (07:46→18:21)
[2020-01-15] MEDS: Aspirin 325 MG Tab PO SCH (08:27)
[2020-01-15] MEDS: Furosemide 40 MG/4 ML VIAL IVPUSH SCH ×2 (08:28→13:47)
[2020-01-15] MEDS ORDERED: Rosuvastatin 10 MG Tab PO SCH (09:00)
[2020-01-15] MEDS: BUDESONIDE INH SCH ×2 (10:09→21:22)
[2020-01-15] MEDS: TRIAMCINOLONE ACETONIDE NASBOTH SCH (10:35)
[2020-01-15] MEDS ORDERED: UBIDECARENONE 200 MG PO SCH (12:15)
[2020-01-15] MEDS ORDERED: Fish Oil/Omega-3 Fatty Acids 1 Gm Cap PO SCH (12:15)
[2020-01-15] MEDS: Lisinopril 10 MG Tab PO SCH (12:57)
--- NOTE | 2020-01-15 14:22 | PCM.PN ---
- General Info Date of Service: 01/15/20 - Review of Systems Systems Review Comment:: shortness of breath improving, leg swelling improving. - Patient Data Vitals - Most Recent: Last Vital Signs Temp 36.8 C 01/15/20 12:52 Pulse 110 H 01/15/20 12:52 Resp 18 01/15/20 12:52 BP 109/71 01/15/20 12:57 Pulse Ox 91 L 01/15/20 12:52 Weight - Most Recent: 98.203 kg I&O - Last 24 Hours: Intake & Output 01/14/20 01/15/20 01/15/20 22:59 06:59 14:59 Intake Total 0 900 Output Total 520 3725 Balance -520 -2687 Lab Results Last 24 Hours: Laboratory Results - last 24 hr 01/14/20 01/14/20 01/14/20 Range/Units 12:30 16:16 17:31 WBC (4.0-11.0) K/uL RBC (4.50-5.90) M/uL Hgb (13.0-17.0) g/dL Hct (38.0-50.0) % MCV (80.0-98.0) fL MCH (27.0-32.0) pg MCHC (31.0-37.0) g/dL RDW Std Deviation (28.0-62.0) fl RDW Coeff of Jenn (11.0-15.0) % Plt Count (150-400) K/uL MPV (7.40-12.00) fL Neut % (Auto) (48.0-80.0) % Lymph % (Auto) (16.0-40.0) % [place] % (Auto) (0.0-15.0) % Eos % (Auto) (0.0-7.0) % Baso % (Auto) (0.0-1.5) % Neut # (Auto) (1.4-5.7) K/uL Lymph # (Auto) (0.6-2.4) K/uL [place] # (Auto) (0.0-0.8) K/uL Eos # (Auto) (0.0-0.7) K/uL Baso # (Auto) (0.0-0.1) K/uL Sodium (136-148) mmol/L Potassium (3.5-5.1) mmol/L Chloride (98-107) mmol/L Carbon Dioxide (21.0-32.0) mmol/L BUN (7.0-18.0) mg/dL Creatinine (0.8-1.3) mg/dL Est Cr Clr Drug Dosing mL/min Estimated GFR (MDRD) ml/min Glucose (74-106) mg/dL POC Glucose 126 H (60-110) mg/dL Hemoglobin A1c (4.5-6.2) % Calcium (8.5-10.1) mg/dL Magnesium (1.8-2.4) mg/dL Troponin I < 0.050 (0.000-0.056) ng/mL Triglycerides (0-200) mg/dL Cholesterol (50-200) mg/dL LDL Cholesterol, Calc (60-180) mg/dL VLDL Cholesterol (5-55) mg/dL HDL Cholesterol (40-60) mg/dL Cholesterol/HDL Ratio (3.3-6.0) TSH 3rd Generation 1.61 (0.36-3.74) uIU/mL 01/14/20 01/15/20 01/15/20 Range/Units 20:39 05:23 05:23 WBC 9.96 (4.0-11.0) K/uL RBC 5.47 (4.50-5.90) M/uL Hgb 16.3 (13.0-17.0) g/dL Hct 49.1 (38.0-50.0) % MCV 89.8 (80.0-98.0) fL MCH 29.8 (27.0-32.0) pg MCHC 33.2 (31.0-37.0) g/dL RDW Std Deviation 46.8 (28.0-62.0) fl RDW Coeff of Jenn 14 (11.0-15.0) % Plt Count 162 (150-400) K/uL MPV 10.70 (7.40-12.00) fL Neut % (Auto) 72.4 (48.0-80.0) % Lymph % (Auto) 17.1 (16.0-40.0) % [place] % (Auto) 8.9 (0.0-15.0) % Eos % (Auto) 1.3 (0.0-7.0) % Baso % (Auto) 0.3 (0.0-1.5) % Neut # (Auto) 7.2 H (1.4-5.7) K/uL Lymph # (Auto) 1.7 (0.6-2.4) K/uL [place] # (Auto) 0.9 H (0.0-0.8) K/uL Eos # (Auto) 0.1 (0.0-0.7) K/uL Baso # (Auto) 0.0 (0.0-0.1) K/uL Sodium 140 (136-148) mmol/L Potassium 4.1 (3.5-5.1) mmol/L Chloride 100 (98-107) mmol/L Carbon Dioxide 30.3 (21.0-32.0) mmol/L BUN 25 H (7.0-18.0) mg/dL Creatinine 1.3 (0.8-1.3) mg/dL Est Cr Clr Drug Dosing 52.49 mL/min Estimated GFR (MDRD) 55.8 ml/min Glucose 153 H (74-106) mg/dL POC Glucose (60-110) mg/dL Hemoglobin A1c (4.5-6.2) % Calcium 9.2 (8.5-10.1) mg/dL Magnesium 2.0 (1.8-2.4) mg/dL Troponin I < 0.050 (0.000-0.056) ng/mL Triglycerides 103 (0-200) mg/dL Cholesterol 147 (50-200) mg/dL LDL Cholesterol, Calc 72 (60-180) mg/dL VLDL Cholesterol 20 (5-55) mg/dL HDL Cholesterol 54 (40-60) mg/dL Cholesterol/HDL Ratio 2.7 L (3.3-6.0) TSH 3rd Generation (0.36-3.74) uIU/mL 01/15/20 01/15/20 01/15/20 Range/Units 05:23 06:07 12:15 WBC (4.0-11.0) K/uL RBC (4.50-5.90) M/uL Hgb (13.0-17.0) g/dL Hct (38.0-50.0) % MCV (80.0-98.0) fL MCH (27.0-32.0) pg MCHC (31.0-37.0) g/dL RDW Std Deviation (28.0-62.0) fl RDW Coeff of Jenn (11.0-15.0) % Plt Count (150-400) K/uL MPV (7.40-12.00) fL Neut % (Auto) (48.0-80.0) % Lymph % (Auto) (16.0-40.0) % [place] % (Auto) (0.0-15.0) % Eos % (Auto) (0.0-7.0) % Baso % (Auto) (0.0-1.5) % Neut # (Auto) (1.4-5.7) K/uL Lymph # (Auto) (0.6-2.4) K/uL [place] # (Auto) (0.0-0.8) K/uL Eos # (Auto) (0.0-0.7) K/uL Baso # (Auto) (0.0-0.1) K/uL Sodium (136-148) mmol/L Potassium (3.5-5.1) mmol/L Chloride (98-107) mmol/L Carbon Dioxide (21.0-32.0) mmol/L BUN (7.0-18.0) mg/dL Creatinine (0.8-1.3) mg/dL Est Cr Clr Drug Dosing mL/min Estimated GFR (MDRD) ml/min Glucose (74-106) mg/dL POC Glucose 162 H 132 H (60-110) mg/dL Hemoglobin A1c 7.1 H (4.5-6.2) % Calcium (8.5-10.1) mg/dL Magnesium (1.8-2.4) mg/dL Troponin I (0.000-0.056) ng/mL Triglycerides (0-200) mg/dL Cholesterol (50-200) mg/dL LDL Cholesterol, Calc (60-180) mg/dL VLDL Cholesterol (5-55) mg/dL HDL Cholesterol (40-60) mg/dL Cholesterol/HDL Ratio (3.3-6.0) TSH 3rd Generation (0.36-3.74) uIU/mL Med Orders - Current: Current Medications Acetaminophen (Tylenol) 650 mg PO Q4H PRN PRN Reason: Pain (Mild 1-3)/fever Last Admin: 01/14/20 23:48 Dose: 650 mg Albuterol/Ipratropium (Duoneb 3.0-0.5 Mg/3 Ml) 3 ml NEB Q6HRRT [facility] Last Admin: 01/15/20 11:23 Dose: 3 ml Aspirin (Aspirin) 325 mg PO DAILY [facility] Last Admin: 01/15/20 08:27 Dose: 325 mg Atorvastatin Calcium (Lipitor) 80 mg PO BEDTIME [facility] Last Admin: 01/14/20 20:46 Dose: 80 mg Docusate Sodium (Colace) 100 mg PO BID PRN PRN Reason: Constipation Doxepin HCl (Sinequan) 25 mg PO BEDTIME [facility] Dutasteride (Avodart) 0.5 mg PO BEDTIME [facility] Last Admin: 01/14/20 20:47 Dose: 0.5 mg Folic Acid (Folic Acid) 1 mg PO BEDTIME [facility] Last Admin: 01/14/20 20:51 Dose: 1 mg Heparin Sodium (Porcine) (Heparin Sodium) 5,000 units SUBCUT Q8H [facility] Last Admin: 01/15/20 10:17 Dose: 5,000 units Insulin Aspart (Novolog) 0 unit SUBCUT TIDAC [facility]; Protocol Last Admin: 01/15/20 12:43 Dose: Not Given Lisinopril (Prinivil) 10 mg PO DAILY [facility] Last Admin: 01/15/20 12:57 Dose: 10 mg Lorazepam (Ativan) 0 mg PO Q4H PRN; Protocol PRN Reason: CIWAA score Lorazepam (Ativan) 0 mg IVPUSH Q4H PRN; Protocol PRN Reason: CIWAA score Omeprazole (Omeprazole) 20 mg PO ACBREAKFAST PRN PRN Reason: HEARTBURN Last Admin: 01/15/20 11:34 Dose: 20 mg Ondansetron HCl (Zofran) 4 mg IVPUSH Q4H PRN PRN Reason: Nausea Budesonide [ Pulmicort Flexhaler] 180 Mcg/Actuation 3 each INH BID [facility] Last Admin: 01/15/20 10:09 Dose: 3 each Januvia 100 Mg 1 each PO DAILY [facility] Last Admin: 01/15/20 10:32 Dose: 1 each Triamcinolone Acetonide 16.5 Gm Bottle 0 each NASBOTH DAILY [facility] Last Admin: 01/15/20 10:35 Dose: 2 each Pro-[place] Coq10 2 each PO BID@0800,2100 [facility] Tamsulosin HCl (Flomax) 0.4 mg PO BEDTIME [facility] Last Admin: 01/14/20 20:50 Dose: 0.4 mg Thiamine HCl (Vitamin B-1) 100 mg PO BEDTIME [facility] Last Admin: 01/14/20 20:51 Dose: 100 mg Discontinued Medications Doxepin HCl (Sinequan) 25 mg PO BEDTIME [facility] Last Admin: 01/14/20 20:50 Dose: 25 mg Fish Oil (Fish Oil) 1 gm PO DAILY [facility] Last Admin: 01/15/20 12:41 Dose: 1 gm Furosemide (Lasix) 40 mg IVPUSH NOW ONE Stop: 01/14/20 13:58 Last Admin: 01/14/20 14:45 Dose: 40 mg Furosemide (Lasix) 40 mg IVPUSH BIDDIURETIC [facility] Last Admin: 01/15/20 13:47 Dose: 40 mg Furosemide (Lasix) 40 mg IVPUSH DAILY ONE Stop: 01/14/20 20:01 Last Admin: 01/14/20 20:55 Dose: 40 mg Iopamidol (Isovue Multipack-370 (76%)) 75 ml IVPUSH ONETIME STA Stop: 01/14/20 15:59 Last Admin: 01/14/20 15:59 Dose: 75 ml Rosuvastatin Calcium (Crestor) 10 mg PO DAILY [facility] Sodium Chloride (Saline Flush) 10 ml FLUSH ASDIRECTED PRN PRN Reason: Keep Vein Open Last Admin: 01/14/20 12:36 Dose: 10 ml Sodium Chloride (Saline Flush) 2.5 ml FLUSH ASDIRECTED PRN PRN Reason: Keep Vein Open Last Admin: 01/14/20 12:36 Dose: 2.5 ml - Exam General: Alert, Oriented HEENT: Mucous Membr. Moist/[place] Neck: Supple Lungs: Clear to Auscultation, Normal Respiratory Effort Cardiovascular: Regular Rate, Regular Rhythm GI/Abdominal Exam: Non-Tender, No Distention Extremities: Non-Tender, No Pedal Edema Skin: Warm, Dry, Intact Neurological: No New Focal Deficit Sepsis Event Note - Evaluation Sepsis Screening Result: No Definite Risk - Focused Exam Vital Signs: Vital Signs Temp Pulse Resp BP BP Pulse Ox 01/15/20 12:57 109/71 01/15/20 12:52 36.8 C 110 H 18 109/71 91 L 01/15/20 08:00 37.2 C 101 H 18 106/66 95 01/15/20 04:31 36.8 C 99 18 103/58 L 90 L Date Exam was Performed: 01/15/20 Time Exam was Performed: 14:20 - Problem List Review Problem List Initiated/Reviewed/Updated: Yes - My Orders Last 24 Hours: My Active Orders 01/15/20 12:15 lisinopriL [Prinivil] 10 mg PO DAILY 01/15/20 21:00 Patient's Own Medication [Ptom] 2 each PO BID@0800,2100 - Plan Plan:: 65 yo male admitted with acute CHF exacerbation. We will continue diuresing [address], Echocardiogram report is pending. Holding amlodipine but will resume lisinopril.
[2020-01-15] MEDS: [UNRECOGNIZED DRUG - OTHER] PO SCH (20:30)
[2020-01-15] MEDS: Dutasteride 0.5 MG Cap PO SCH (20:32)
[2020-01-15] MEDS: Folic Acid 1 MG Tab PO SCH (20:33)
[2020-01-15] MEDS: Tamsulosin 0.4 MG Cap.ER PO SCH (20:35)
[2020-01-15] MEDS: Thiamine 100 MG Tab PO SCH (20:35)
[2020-01-15] MEDS: atorvaSTATin 40 MG Tab PO SCH (20:36)
[2020-01-15] MEDS ORDERED: Doxepin 25 MG Cap PO SCH (21:00)
[2020-01-16] MEDS: Albuterol/Ipratropium 3.0-0.5 MG/3 ML Neb Soln NEB SCH ×3 (00:09→11:25)
[2020-01-16] MEDS: Heparin Sodium 5,000 Units/ML Vial SUBCUT SCH ×2 (00:09→10:08)
[2020-01-16] MEDS: [UNRECOGNIZED DRUG - OTHER] PO SCH (07:34)
[2020-01-16] MEDS: Insulin Aspart 100 Units/ML 3 ML Pen SUBCUT SCH (09:12)
[2020-01-16] MEDS: Aspirin 325 MG Tab PO SCH (09:18)
[2020-01-16] MEDS: Lisinopril 10 MG Tab PO SCH (09:19)
[2020-01-16] MEDS: BUDESONIDE INH SCH (09:20)
[2020-01-16] MEDS: TRIAMCINOLONE ACETONIDE NASBOTH SCH (09:23)
[2020-01-16 10:20] LABS: BLOOD UREA NITROGEN,BUN 31 mg/dL (7.0-18.0); CARBON DIOXIDE,CO2 28.5 mmol/L (21.0-32.0); CHLORIDE,CL 101 mmol/L (98-107); GLUCOSE RANDOM 181 mg/dL (74-106); POTASSIUM,K 4.2 mmol/L (3.5-5.1); SODIUM,NA 139 mmol/L (136-148)
--- NOTE | 2020-01-16 12:39 | PCM.DCSUM1 ---
Discharge Summary - Discharge Data Discharge Date: 01/16/20 Discharge Disposition: Home, Self-Care 01 Condition: Stable - Referral to Home Health Primary Care Physician: José Browne MD - Patient Summary/Data Hospital Course: 65 year old male with pmh of HTN, DM type 2, asthma, tobacco use,sometimes daily alcohol use, and BPH who was admitted for new onset CHF exacerbation. He presented to the ED with complaints of shortness of breath and leg swelling. In the ED no leukocytosis noted. Hgb elevated 16.4 and Hct 50.3. INR 1.06, BUN 21, Cr 1.2. Troponin negative. BNP evated at 521. EKG SR with no ST segment changes. CXR revealed mild cardiomegaly, and subacute L 5-7 rib fractures with some noted pleural thickening around these fractures. CT angio revealed no PE, but showed arthersclerotic changes of the coronary arteries. He was treated with IV lasix with improvement of his leg swelling and shortness of breath. HE was counseled on tobacco cessation. He was started on aspirin and his crestor was increased to 20mg a day due to his coronary artery disease seen on CT scan. With the addition of lasix his amlodipine was discontinued as his blood pressure remained stable with the resumption of his lisinopril. Echocardiogram was performed but the report is pending at the time of discharge. PAtient is requesting discharge this morning. He is to follow up with Dr. Orr and Dr. North. - Patient Instructions Diet: Heart Healthy Diet - Discharge Plan Prescriptions/Med Rec: Aspirin [Lite Coat Aspirin] 325 mg PO DAILY #30 tablet Furosemide [Lasix] 40 mg PO DAILY #30 tab Rosuvastatin Calcium [Ezallor Sprinkle] 20 mg PO BEDTIME #30 cap.[email or web address] Home Medications: Home Meds Budesonide [Pulmicort Flexhaler] 3 puff INH BID 01/14/20 [History] Doxepin [SINEquan] 25 mg PO BEDTIME 01/14/20 [History] Dutasteride 0.5 mg PO BEDTIME 01/14/20 [History] Empagliflozin [Jardiance] 25 mg PO ACBREAKFAST 01/14/20 [History] Omeprazole Magnesium [Prilosec Otc] 20 mg PO ACBREAKFAST PRN 01/14/20 [History] SitaGLIPtin [Januvia] 100 mg PO DAILY 01/14/20 [History] Tamsulosin [Flomax] 0.4 mg PO BEDTIME 01/14/20 [History] Triamcinolone Acetonide [Nasacort] 2 spray NASBOTH DAILY 01/14/20 [History] lisinopriL [Lisinopril] 10 mg PO DAILY 01/14/20 [History] Ubidecarenone [Co Q10] 2 ampule PO BID 01/15/20 [History] Aspirin [Lite Coat Aspirin] 325 mg PO DAILY #30 tablet 01/16/20 [Rx] Furosemide [Lasix] 40 mg PO DAILY #30 tab 01/16/20 [Rx] Rosuvastatin Calcium [Ezallor Sprinkle] 20 mg PO BEDTIME #30 cap.[email or web address] [Rx] Patient Handouts: Heart Failure, Self Care, [id number] Referrals: Elvia Suarez MD [Physician] - 02/20/20 2:30 pm José Browne MD [Primary Care Provider] - 01/23/20 9:00 am (Arrive 15 minutes with photo ID, insurance card, and discharge paperwork. If you are not early they will not see you. ) - Discharge Summary/Plan Comment DC Time >30 min.: No - Patient Data Vitals - Most Recent: Last Vital Signs Temp 37.5 C 01/16/20 11:00 Pulse 114 H 01/16/20 11:00 Resp 20 01/16/20 11:00 BP 110/68 01/16/20 11:00 Pulse Ox 95 01/16/20 11:00 Weight - Most Recent: 96.162 kg I&O - Last 24 hours: Intake & Output 01/15/20 01/16/20 01/16/20 22:59 06:59 14:59 Intake Total 900 Output Total 2850 Balance -1950 Lab Results - Last 24 hrs: Laboratory Results - last 24 hr 01/15/20 01/16/20 01/16/20 Range/Units 17:38 06:01 09:42 WBC 10.58 (4.0-11.0) K/uL RBC 5.78 (4.50-5.90) M/uL Hgb 17.3 H (13.0-17.0) g/dL Hct 52.5 H (38.0-50.0) % MCV 90.8 (80.0-98.0) fL MCH 29.9 (27.0-32.0) pg MCHC 33.0 (31.0-37.0) g/dL RDW Std Deviation 48.2 (28.0-62.0) fl RDW Coeff of Jenn 15 (11.0-15.0) % Plt Count 178 (150-400) K/uL MPV 10.50 (7.40-12.00) fL Neut % (Auto) 70.2 (48.0-80.0) % Lymph % (Auto) 20.7 (16.0-40.0) % [place] % (Auto) 7.5 (0.0-15.0) % Eos % (Auto) 1.2 (0.0-7.0) % Baso % (Auto) 0.4 (0.0-1.5) % Neut # (Auto) 7.4 H (1.4-5.7) K/uL Lymph # (Auto) 2.2 (0.6-2.4) K/uL [place] # (Auto) 0.8 (0.0-0.8) K/uL Eos # (Auto) 0.1 (0.0-0.7) K/uL Baso # (Auto) 0.0 (0.0-0.1) K/uL Nucleated RBC % 0.0 /100WBC Nucleated RBCs # 0 K/uL Sodium (136-148) mmol/L Potassium (3.5-5.1) mmol/L Chloride (98-107) mmol/L Carbon Dioxide (21.0-32.0) mmol/L BUN (7.0-18.0) mg/dL Creatinine (0.8-1.3) mg/dL Est Cr Clr Drug Dosing mL/min Estimated GFR (MDRD) ml/min Glucose (74-106) mg/dL POC Glucose 145 H 146 H (60-110) mg/dL Calcium (8.5-10.1) mg/dL 01/16/20 01/16/20 Range/Units 09:42 11:59 WBC (4.0-11.0) K/uL RBC (4.50-5.90) M/uL Hgb (13.0-17.0) g/dL Hct (38.0-50.0) % MCV (80.0-98.0) fL MCH (27.0-32.0) pg MCHC (31.0-37.0) g/dL RDW Std Deviation (28.0-62.0) fl RDW Coeff of Jenn (11.0-15.0) % Plt Count (150-400) K/uL MPV (7.40-12.00) fL Neut % (Auto) (48.0-80.0) % Lymph % (Auto) (16.0-40.0) % [place] % (Auto) (0.0-15.0) % Eos % (Auto) (0.0-7.0) % Baso % (Auto) (0.0-1.5) % Neut # (Auto) (1.4-5.7) K/uL Lymph # (Auto) (0.6-2.4) K/uL [place] # (Auto) (0.0-0.8) K/uL Eos # (Auto) (0.0-0.7) K/uL Baso # (Auto) (0.0-0.1) K/uL Nucleated RBC % /100WBC Nucleated RBCs # K/uL Sodium 139 (136-148) mmol/L Potassium 4.2 (3.5-5.1) mmol/L Chloride 101 (98-107) mmol/L Carbon Dioxide 28.5 (21.0-32.0) mmol/L BUN 31 H (7.0-18.0) mg/dL Creatinine 1.1 (0.8-1.3) mg/dL Est Cr Clr Drug Dosing 62.03 mL/min Estimated GFR (MDRD) > 60.0 ml/min Glucose 181 H (74-106) mg/dL POC Glucose 130 H (60-110) mg/dL Calcium 9.7 (8.5-10.1) mg/dL Med Orders - Current: Current Medications Acetaminophen (Tylenol) 650 mg PO Q4H PRN PRN Reason: Pain (Mild 1-3)/fever Last Admin: 01/14/20 23:48 Dose: 650 mg Albuterol/Ipratropium (Duoneb 3.0-0.5 Mg/3 Ml) 3 ml NEB Q6HRRT [facility] Last Admin: 01/16/20 11:25 Dose: 3 ml Aspirin (Aspirin) 325 mg PO DAILY [facility] Last Admin: 01/16/20 09:18 Dose: 325 mg Atorvastatin Calcium (Lipitor) 80 mg PO BEDTIME [facility] Last Admin: 01/15/20 20:36 Dose: 80 mg Docusate Sodium (Colace) 100 mg PO BID PRN PRN Reason: Constipation Doxepin HCl (Sinequan) 25 mg PO BEDTIME [facility] Last Admin: 01/15/20 20:33 Dose: 25 mg Dutasteride (Avodart) 0.5 mg PO BEDTIME [facility] Last Admin: 01/15/20 20:32 Dose: 0.5 mg Folic Acid (Folic Acid) 1 mg PO BEDTIME [facility] Last Admin: 01/15/20 20:33 Dose: 1 mg Heparin Sodium (Porcine) (Heparin Sodium) 5,000 units SUBCUT Q8H [facility] Last Admin: 01/16/20 10:08 Dose: 5,000 units Insulin Aspart (Novolog) 0 unit SUBCUT TIDAC [facility]; Protocol Last Admin: 01/16/20 09:12 Dose: Not Given Lisinopril (Prinivil) 10 mg PO DAILY [facility] Last Admin: 01/16/20 09:19 Dose: 10 mg Lorazepam (Ativan) 0 mg PO Q4H PRN; Protocol PRN Reason: CIWAA score Lorazepam (Ativan) 0 mg IVPUSH Q4H PRN; Protocol PRN Reason: CIWAA score Omeprazole (Omeprazole) 20 mg PO ACBREAKFAST PRN PRN Reason: HEARTBURN Last Admin: 01/15/20 11:34 Dose: 20 mg Ondansetron HCl (Zofran) 4 mg IVPUSH Q4H PRN PRN Reason: Nausea Budesonide [ Pulmicort Flexhaler] 180 Mcg/Actuation 3 each INH BID [facility] Last Admin: 01/16/20 09:20 Dose: 3 each Januvia 100 Mg 1 each PO DAILY [facility] Last Admin: 01/16/20 09:21 Dose: 1 each Triamcinolone Acetonide 16.5 Gm Bottle 0 each NASBOTH DAILY [facility] Last Admin: 01/16/20 09:23 Dose: 2 each Pro-[place] Coq10 2 each PO BID@0800,2100 [facility] Last Admin: 01/16/20 07:34 Dose: 2 each Tamsulosin HCl (Flomax) 0.4 mg PO BEDTIME [facility] Last Admin: 01/15/20 20:35 Dose: 0.4 mg Thiamine HCl (Vitamin B-1) 100 mg PO BEDTIME [facility] Last Admin: 01/15/20 20:35 Dose: 100 mg Discontinued Medications Doxepin HCl (Sinequan) 25 mg PO BEDTIME [facility] Last Admin: 01/14/20 20:50 Dose: 25 mg Fish Oil (Fish Oil) 1 gm PO DAILY [facility] Last Admin: 01/15/20 12:41 Dose: 1 gm Furosemide (Lasix) 40 mg IVPUSH NOW ONE Stop: 01/14/20 13:58 Last Admin: 01/14/20 14:45 Dose: 40 mg Furosemide (Lasix) 40 mg IVPUSH BIDDIURETIC [facility] Last Admin: 01/15/20 13:47 Dose: 40 mg Furosemide (Lasix) 40 mg IVPUSH DAILY ONE Stop: 01/14/20 20:01 Last Admin: 01/14/20 20:55 Dose: 40 mg Iopamidol (Isovue Multipack-370 (76%)) 75 ml IVPUSH ONETIME STA Stop: 01/14/20 15:59 Last Admin: 01/14/20 15:59 Dose: 75 ml Rosuvastatin Calcium (Crestor) 10 mg PO DAILY [facility] Sodium Chloride (Saline Flush) 10 ml FLUSH ASDIRECTED PRN PRN Reason: Keep Vein Open Last Admin: 01/14/20 12:36 Dose: 10 ml Sodium Chloride (Saline Flush) 2.5 ml FLUSH ASDIRECTED PRN PRN Reason: Keep Vein Open Last Admin: 01/14/20 12:36 Dose: 2.5 ml
--- NOTE | 2020-01-20 12:47 | ECHO ---
EXAM DATE: 01/14/20 PATIENT'S AGE: 65 The ECHO report has been scanned into [employer] and can be seen in this patient' s EMR (Electronic Medical Record) under the REPORTS section. The report has also been scanned into PACS. TAMIR
== END 2020-01-16 13:10 | disposition home or self-care (01) ==
LOC: MW.ED 11:42 → UNDOADMOB 14:01 → MW.MS 14:01
PROVIDERS: ADMIT Student in an Organized Health Care Education/Training Program; ATTEND Student in an Organized Health Care Education/Training Program
DX: I11.0 Hypertensive heart disease with heart failure (principal); I50.9 Heart failure, unspecified; R60.0 Localized edema; E11.9 Type 2 diabetes mellitus without complications; N40.0 Benign prostatic hyperplasia without lower urinary tract symptoms; F17.210 Nicotine dependence, cigarettes, uncomplicated; Z72.89 Other problems related to lifestyle; Z88.0 Allergy status to penicillin; Z88.8 Allergy status to other drugs, medicaments and biological substances
CPT/HCPCS: 36415; 71046; 71275; 80048; 80053; 80061; 82962; 83036; 83735; 83880; 84443; 84484; 85025; 85610; 93005; 93306; 94640; 96372; 96374; 96376; 99285; A9270; G0378; J1644; J1815; J1940; Q9967; 99284; J7620-GY